=== PATIENT | male | born 1940 | race Caucasian/White ===

== ENCOUNTER 2018-02-14 10:10 | Emergency (ER) | payer MEDICARE, MEDICAID ==
[~2018-02-14] VITALS: Ht 180.3 cm; Wt 86.2 kg
--- NOTE | 2018-02-14 10:47 | NUR ---
PT IS IN ROOM #2A. DR HONEYCUTT EVALUATED THE PT.
[2018-02-14 11:06] LABS: BASOPHILS # (AUTO) 0.1 K/uL (0.0-8.0); BASOPHILS % (AUTO) 1.2 % (0.0-2.0); EOSINOPHILS # (AUTO) 0.2 K/uL (0.0-0.7); EOSINOPHILS % (AUTO) 2.4 % (0.0-7.0); HEMATOCRIT 39.2 % (36.7-47.1); HEMOGLOBIN 13.2 g/dL (12.5-16.3); LYMPHOCYTES # (AUTO) 1.7 K/uL (20.0-40.0); LYMPHOCYTES % (AUTO) 20.3 % (20.5-51.5); MEAN CORPUSCULAR HEMOGLOBIN 28.1 uug (23.8-33.4); MEAN CORPUSCULAR HGB CONC 34 g/dL (32.5-36.3); MEAN CORPUSCULAR VOLUME 83.4 fL (73.0-96.2); MONOCYTES # (AUTO) 0.8 K/uL (2.0-10.0); NEUTROPHILS # (AUTO) 5.6 K/uL (1.8-8.9); NEUTROPHILS % (AUTO) 66.1 % (38.5-71.5); PLATELET COUNT (AUTO) 172 K/uL (152-348); WHITE BLOOD COUNT (AUTO) 8.4 K/uL (3.6-10.2)
[2018-02-14 11:15] LABS: CARBON DIOXIDE 28 mmol/L (21-32); CHLORIDE 104 mmol/L (98-107); CREATININE 0.8 mg/dL (0.6-1.3); GLUCOSE 142 mg/dL (74-106); POTASSIUM 3.9 mmol/L (3.5-5.1); UREA NITROGEN, BLOOD 13 mg/dL (7-18)
[2018-02-14] MEDS ORDERED: TEMA15CA PO (11:24)
[2018-02-14] MEDS ORDERED: CARV25TA2 PO (11:24)
[2018-02-14] MEDS ORDERED: AMLO1TAB14 PO (11:24)
[2018-02-14] MEDS ORDERED: SITA1TAB2 PO (11:24)
[2018-02-14] MEDS ORDERED: FINA5TAB11 PO (11:24)
[2018-02-14] MEDS ORDERED: KETO15CR2 TP (11:24)
[2018-02-14] MEDS ORDERED: ATOR20TA PO (11:24)
[2018-02-14] MEDS ORDERED: TRAM50TA2 PO (11:24)
[2018-02-14] MEDS ORDERED: CARBIDOPA/LEVO PO (11:24)
[2018-02-14] MEDS ORDERED: GABA-534 PO (11:24)
[2018-02-14] MEDS ORDERED: TAMS0.4C34 PO (11:24)
[2018-02-14] MEDS ORDERED: MELO-105 PO (11:24)
[2018-02-14] MEDS ORDERED: APIX2.5T PO (11:24)
[2018-02-14] MEDS ORDERED: ERGO500014 PO (11:24)
[2018-02-14] MEDS ORDERED: ESOM40CA PO (11:24)
[2018-02-14] MEDS ORDERED: TRAMADOL HCL 50 MG TABLET PO ONE (12:15)
[2018-02-14] MEDS ORDERED: TRAMADOL HCL 50 MG TABLET ONE (12:17)
[2018-02-14] MEDS ORDERED: TDAP DIPH,PERTUSS,TET VAC/PF 0.5 ML DISP.SYRIN IM ONE (12:30)
--- NOTE | 2018-02-14 12:38 | NUR ---
PT REFUSED TETANUS IMMUNIZATION. DR HONEYCUTT NOTIFIED.
[2018-02-14 12:39] VITALS: BP 136/81
--- NOTE | 2018-02-14 12:41 | NUR ---
PT WAS D/C TO HOME. D/C INSTRUCTIONS GIVEN TO THE PT AND TO PT's FAMILY.
== END 2018-02-14 12:42 | disposition home or self-care (01) ==
LOC: ER 10:10
DX: S20.212A Contusion of left front wall of thorax, initial encounter (principal); S50.812A Abrasion of left forearm, initial encounter; S80.212A Abrasion, left knee, initial encounter; S09.90XA Unspecified injury of head, initial encounter; I10 Essential (primary) hypertension; E11.9 Type 2 diabetes mellitus without complications; Z86.73 Personal history of transient ischemic attack (TIA), and cerebral infarction without residual deficits; W19.XXXA Unspecified fall, initial encounter; Y93.89 Activity, other specified; Y92.89 Other specified places as the place of occurrence of the external cause; Y99.8 Other external cause status
CPT/HCPCS: 36415; 70450; 71101; 80048; 84484; 85025; 85730; 93005; 99285; A4663; 70030-TC